=== PATIENT | female | born 1960 | race Caucasian/White ===

== ENCOUNTER 2016-05-05 13:04 | Emergency (ER) | payer BC ==
[~2016-05-05] VITALS: Ht 172.7 cm; Wt 68.2 kg
[~2016-05-05 13:04] MED LIST: FLEXERIL10 MG PO; LEVOTHYROXINE100 MCG PO; NAPROSYN500 MG PO; VITAMIN D2000 UNIT PO
[2016-05-05 17:28] LABS: MCH 25.9 PG (29.0-34.0); MCHC 32.8 G/DL (30.0-36.0); MCV 78.9 FL (83-99); MEAN PLAT.VOLUME 11.1 uM^3 (9.5-12.4); PLATELET COUNT 243 K/uL (156-360); RBC DIS.WIDTH-CV 14.9 % (11.8-14.6); RBC DIS.WIDTH-SD 41.7 % (39-53); RED BLOOD COUNT 4.56 M/uL (3.80-5.20); WHITE BLOOD COUNT 8.2 K/uL (4.1-10.2)
[2016-05-05 17:40] LABS: CHLORIDE 109 mEq/L (99-109); POTASSIUM 3.5 mEq/L (3.7-5.4); SODIUM 141 mEq/L (136-147)
[2016-05-05 17:43] LABS: GLUCOSE 107 mg/dL (70-99)
[2016-05-05 17:44] LABS: ANION GAP 10 MEQ/L (2-14)
[2016-05-05 17:45] LABS: TOTAL BILIRUBIN 0.4 mg/dL (0.0-1.0)
[2016-05-05 17:46] LABS: ALKALINE PHOSPHATASE 75 IU/L (3-129); GFR ESTIMATE (CALCULATED) 55 mL/min/
[2016-05-05 17:47] LABS: UREA NITROGEN (BUN) 22 mg/dL (9-23)
[2016-05-05 19:55] VITALS: BP 148/83
== END 2016-05-05 19:56 | disposition home or self-care (01) ==
LOC: EME 13:04
PROVIDERS: Nurse Practitioner Family
DX: R41.3 Other amnesia (principal); R25.1 Tremor, unspecified; F32.9 Major depressive disorder, single episode, unspecified; E03.9 Hypothyroidism, unspecified
CPT/HCPCS: 70450; 80053; 84443; 85027; 99281; 99284